=== PATIENT | female | born 1945 | race Two or more races ===

== ENCOUNTER 2016-11-10 21:23 | Emergency (ER) | payer OTHER ==
[2016-11-10] MEDS ORDERED: OXYMETAZOLINE 0.05% NASAL SPRAY 30ML BOTTLE. NS ONE ×2 (21:36→22:15)
[2016-11-10] MEDS ORDERED: SILVER NITRATE STICK TP ONE (22:05)
[2016-11-10 22:39] LABS: BASO # 0.4 x10^3/uL (0.0-0.2); BASO % 4 % (0-3); EOS % 9 % (0-3); HEMATOCRIT 26.5 % (36.0-47.0); HEMOGLOBIN 8.9 g/dL (12.0-15.5); LYMPH # 2.4 x10^3/uL (1.0-4.8); LYMPH % 22 % (24-48); MEAN CORPUSCULAR HEMOGLOBIN 37 pg (25-35); MEAN CORPUSCULAR HGB CONC 34 g/dL (31-37); MEAN CORPUSCULAR VOLUME 110 fL (79-100); MONO % 7 % (0-9); NEUT % 59 % (31-73); PLATELET COUNT 588 x10^3/uL (140-400); RED BLOOD COUNT 2.41 x10^6/uL (3.50-5.40); RED CELL DISTRIBUTION WIDTH 17.2 % (11.5-14.5)
[2016-11-10 22:48] LABS: INR 1.1 (0.8-1.1); PROTHROMBIN TIME PATIENT 13.4 SEC (11.7-14.0)
[2016-11-10 22:49] LABS: CALCIUM 8.8 mg/dL (8.5-10.1); CREATININE 0.7 mg/dL (0.6-1.0); POTASSIUM 4.3 mmol/L (3.5-5.1)
[2016-11-10 22:55] LABS: ALBUMIN 3.5 g/dL (3.4-5.0); ALBUMIN/GLOBULIN RATIO 0.8 (1.0-1.7); TOTAL BILIRUBIN 0.4 mg/dL (0.2-1.0); TOTAL PROTEIN 7.7 g/dL (6.4-8.2)
[2016-11-10] MEDS ORDERED: LIDOCAINE 1%/EPI 1:100,000 20 ML VIAL. INJ ONE (23:00)
[2016-11-10] MEDS ORDERED: LIDOCAINE 2% VISCOUS 15 ML SOLUTION. SWSW ONE (23:00)
[2016-11-10 23:03] VITALS: BP 162/74
--- NOTE | 2016-11-10 23:28 | PHYS DOC ---
Past Medical History Past Medical History: Anemia, Other Additional Past Medical Histor: bilateral knee pain Past Surgical History: Alcohol Use: None Drug Use: None Adult General Chief Complaint Chief Complaint: NOSEBLEED HPI HPI Patient is a 70 year old female with history significant for anemia per the family who presents here today secondary to nosebleed that started at 8 PM. Patient reports is her fourth nosebleed the last 24 days. Patient reports that she went to approximately one week ago and they didn't do "anything for her. Patient reports that her bleeding stopped and she was sent home. Patient has any history of coronary disease, hypertension diabetes CHF COPD. Patient denies any history of any surgeries. Patient does not smoke or do drugs. Patient allergic medications. Patient takes gabapentin and aspirin. As well as multivitamins. Patient denies any fevers shakes chills nausea vomiting diarrhea dysuria frequency urgency chest pain shortness of breath dizziness postural hypotension or weakness. Patient denies any melena or bright red blood per rectum. Patient denies any nasal trauma. Patient denies any easy bruising or skin or easy bleeding in her gums. Patient's physical exam is significant for normal vital signs. Patient is not tachycardic. Patient not have any postural dizziness when I stand her up. Patient does have a visible vessel in her right naris at h. [place]. Patient's ER course is significant for normal labs except for a macrocytic anemia which the patient is aware of. Patient is currently taking vitamins. It' s unclear whether or not the patient has a microcytic anemia with a large RDW secondary to reticulocyte formation versus having a macrocytic anemia. This was discussed with the patient and she understands that she is to follow-up with her doctor to continue her evaluation workup of her anemia. Patient is currently taking vitamins for her anemia. This appears to be a chronic condition. Patient has normal vital signs and is clinically compensated. I do not believe that the patient needs any further ER workup at this time but will need extensive outpatient evaluation of her anemia. I discussed with the patient that her doctor will need to determine whether not she needs a specific type of vitamin versus iron her both to treat her anemia. The family is aware this and they will make sure she follows up. Patient's ER course was also significant for applying pressure to her naris after Afrin nasal spray was applied. Patient had all blood clots expelled using blowing her nose. After blowing her nose where able to visualize a bleeding vessel. Nasal clamp replaced for approximately 15 minutes. There was no active bleeding. Bleeding was controlled with silver nitrate sticks to her septum on the right side. A nasal tampon was also inserted utilizing viscous lidocaine initially normal. Nares and then the tampon was infiltrated with 5 mL of lidocaine with epi. Patient currently has asked and hemostasis there is no further bleeding. Patient was instructed to follow-up with her primary care physician in 3-4 days for packing removal. Patient understands that she should return to the ER if she has any further problems. Review of Systems Review of Systems Constitutional: Denies fever or chills [] Eyes: Denies change in visual acuity, redness, or eye pain [] All other review systems are negative except as documented in the history of present illness portion. Current Medications Current Medications Current Medications Medications (Trade) Dose Ordered Sig/Dacia Start Time Stop Time Status Last Admin Dose Admin Lidocaine HCl (Viscous Lidocaine) 15 ml 1X ONCE 11/10/16 23:00 11/10/16 23:01 DC 11/10/16 23:00 15 ML Lidocaine/ Epinephrine (Xylocaine 1%-Epi 1:100,000) 20 ml 1X ONCE 11/10/16 23:00 11/10/16 23:01 DC 11/10/16 23:00 20 ML Oxymetazoline HCl (Afrin) 2 spray 1X ONCE 11/10/16 22:15 11/10/16 22:16 DC 11/10/16 21:38 2 SPRAY Silver Nitrate/ Potassium Nitrate 1 each STK-MED ONCE 11/10/16 22:05 11/10/16 22:06 DC Allergies Allergies Allergies Coded Allergies Type Severity Reaction Last Updated Verified No Known Drug Allergies 11/10/16 No Physical Exam Physical Exam Constitutional: Well developed, well nourished, no acute distress, non-toxic appearance. [] HENT: Normocephalic, atraumatic, bilateral external ears normal, oropharynx moist, Eyes: PERRLA, EOMI, conjunctiva normal, no discharge. [] Neck: Normal range of motion, no tenderness, supple, Cardiovascular:Heart rate regular rhythm, Lungs & Thorax: Bilateral breath sounds clear to auscultation [] Abdomen: Bowel sounds normal, soft, no tenderness, no masses, no pulsatile masses. [] Skin: Warm, dry, no erythema, no rash. [] Back: No tenderness, no CVA tenderness. [] Extremities: No tenderness, no cyanosis, no clubbing, ROM intact, no edema. [] Neurologic: Alert and oriented X 3, normal motor function, normal sensory function, no focal deficits noted. [] Psychologic: Affect normal, judgement normal, mood normal. [] Current Patient Data Vital Signs Vital Signs Date Time Temp Pulse Resp B/P (MAP) Pulse Ox O2 Delivery O2 Flow Rate FiO2 11/10/16 23:03 81 18 162/74 (103) 96 Room Air 11/10/16 21:25 98.2 98.2 Lab Values Laboratory Tests Test 11/10/16 22:30 White Blood Count 11.0 x10^3/uL (4.0-11.0) Red Blood Count 2.41 x10^6/uL (3.50-5.40) L Hemoglobin 8.9 g/dL (12.0-15.5) L Hematocrit 26.5 % (36.0-47.0) L Mean Corpuscular Volume 110 fL (79-100) H Mean Corpuscular Hemoglobin 37 pg (25-35) H Mean Corpuscular Hemoglobin Concent 34 g/dL (31-37) Red Cell Distribution Width 17.2 % (11.5-14.5) H Platelet Count 588 x10^3/uL (140-400) H Neutrophils (%) (Auto) 59 % (31-73) Lymphocytes (%) (Auto) 22 % (24-48) L Monocytes (%) (Auto) 7 % (0-9) Eosinophils (%) (Auto) 9 % (0-3) H Basophils (%) (Auto) 4 % (0-3) H Neutrophils # (Auto) 6.4 x10^3uL (1.8-7.7) Lymphocytes # (Auto) 2.4 x10^3/uL (1.0-4.8) Monocytes # (Auto) 0.7 x10^3/uL (0.0-1.1) Eosinophils # (Auto) 1.0 x10^3/uL (0.0-0.7) H Basophils # (Auto) 0.4 x10^3/uL (0.0-0.2) H Platelet Estimate Pending Prothrombin Time 13.4 SEC (11.7-14.0) Prothrombin Time INR 1.1 (0.8-1.1) Sodium Level 142 mmol/L (136-145) Potassium Level 4.3 mmol/L (3.5-5.1) Chloride Level 104 mmol/L (98-107) Carbon Dioxide Level 31 mmol/L (21-32) Anion Gap 7 (6-14) Blood Urea Nitrogen 10 mg/dL (7-20) Creatinine 0.7 mg/dL (0.6-1.0) Estimated GFR (Cockcroft-Gault) 83.0 BUN/Creatinine Ratio 14 (6-20) Glucose Level 124 mg/dL (70-99) H Calcium Level 8.8 mg/dL (8.5-10.1) Total Bilirubin 0.4 mg/dL (0.2-1.0) Aspartate Amino Transferase (AST) 11 U/L (15-37) L Alanine Aminotransferase (ALT) 21 U/L (14-59) Alkaline Phosphatase 59 U/L (46-116) Total Protein 7.7 g/dL (6.4-8.2) Albumin 3.5 g/dL (3.4-5.0) Albumin/Globulin Ratio 0.8 (1.0-1.7) L Laboratory Tests 11/10/16 22:30 Laboratory Tests 11/10/16 22:30 EKG EKG [] Radiology/Procedures Radiology/Procedures [] Course & Med Decision Making Course & Med Decision Making Pertinent Labs and Imaging studies reviewed. (See chart for details) [] Dragon Disclaimer Dragon Disclaimer This electronic medical record was generated, in whole or in part, using a voice recognition dictation system. Departure Departure Impression: Primary Impression: Acute anterior epistaxis Additional Impression: Anemia Disposition: 01 HOME, SELF-CARE Condition: LEFT WITHOUT BEING SEEN Referrals: NO PCP (PCP) Patient Instructions: Anemia, FAQs, Nosebleed Additional Instructions: Please see her doctor in 3-4 days to have her packing evaluated and likely remove. Return to the ER for any further concerns or problems. Please note that you are anemic. I understand that you really know this you're currently taking medications however you absolutely need to see her doctor to make sure that they had done a full workup and evaluation and her treating or anemia appropriately. She taking her vitamins as directed. Problem Qualifiers Additional Impression: Anemia Anemia type: unspecified type Qualified Codes: D64.9 - Anemia, unspecified MATEO WHITEHEAD MD November 10, 2016 23:28
[2016-11-10 23:53] LABS: % BASOS 2 % (0-3); % EOS 9 % (0-5); PLT ESTIMATE INCREASED (ADEQUATE); POLYCHROMASIA SLIGHT
[2016-11-10 23:54] LABS: ANISOCYTOSIS SLIGHT; HYPOCHROMIA SLIGHT
== END 2016-11-10 23:50 | disposition home or self-care (01) ==
LOC: ER 21:23
DX: R04.0 Epistaxis (principal); D53.9 Nutritional anemia, unspecified
CPT/HCPCS: 30903; 36415; 80053; 85007; 85027; 85610; 99284; J3490